=== PATIENT | male | born 1980 | race Caucasian/White ===

== ENCOUNTER 2017-09-10 21:08 | Emergency (ER) | payer OTHER ==
[~2017-09-10] VITALS: Ht 180.3 cm; Wt 86.0 kg
[2017-09-10 21:22] VITALS: Ht 180.3 cm; Wt 86.0 kg
--- NOTE | 2017-09-10 21:54 | ERD ---
ER Documentation Chief Complaint Chief Complaint patient ritika reveles from [place] for pulling gun, in custody, here for (ANTHONY HUNETR MD) HPI This is a 37-year-old male with a possible history of bipolar disorder who reportedly went into a [employer] store with a realistic looking toy gun and threatened to shoot everyone in it. According to police, he was reportedly upset about a [employer] Bill. The police were called immediately and attempted to arrest him. In order to detain him, they had to take him to the ground and the knee was placed in his upper back to secure him to the ground for the safety of the officers and surrounding bystanders. The patient was handcuffed him with the intent is to arrest him. However, after the patient was handcuffed, he started to complain about back pain, requesting his security dispatcher and claiming assault. At one point he was screaming that he had a history of Bipolar disorder as well. The rest of the history is limited secondary to patient's significant agitation and aggression. The patient would not answer questions. (ANTHONY HUNTER MD) ROS Limited secondary to patient's agitation. (ANTHONY HUNTER MD) Medications Home Meds Active Scripts Naproxen* (Naproxen*) 500 Mg Tablet, 500 MG PO BID Y for PAIN, #20 TAB Prov:LESTER BLANDON DO 09/11/17 Allergies Allergies: Coded Allergies: Unable to Assess (Verified Allergy, Unknown, 09/10/17) PMhx/Soc Limited secondary to patient's agitation and noncompliance with history taking Hx Psychiatric Problems: Yes (?Bipolar disorder) Hx Alcohol Use: Yes Hx Substance Use: Yes Hx Tobacco Use: Yes Smoking Status: Current every day smoker (ANTHONY HUNTER MD) FmHx Unable to obtain secondary to patient noncompliance and agitation. (ANTHONY HUNTER MD) Physical Exam Vitals Vital Signs Date Time Temp Pulse Resp B/P Pulse Ox O2 Delivery O2 Flow Rate FiO2 09/11/17 01:14 98.5 70 19 126/81 100 09/10/17 21:45 98.5 98 18 126/81 100 Room Air 09/10/17 21:22 98.5 112 18 126/81 100 (LESTER BLANDON DO) Physical Exam Const: Significant emotional distress, well-developed, well-nourished Head: Normocephalic, Atraumatic Eyes: Normal Conjunctiva. Pupils equal, round and reactive to light ENT: Normal External Ears, Nose and Mouth. Neck: No midline step-offs or deformities Resp: Clear to auscultation bilaterally, No wheezes, rales or rhonchi Cardio: Regular rate and rhythm. No murmurs, rubs or gallops Abd: Soft, non tender, non distended. Normal bowel sounds Skin: No petechiae or rashes Back: No midline step-offs or deformities to the thoracic or lumbar spine Ext: No cyanosis, or edema Neur: No facial droop. Moves all extremities spontaneously. No obvious focal deficits. Psych: Significant agitation. (ANTHONY HUNTER MD) Result Diagram: 09/10/17235409/10/175 Results 24 hrs Laboratory Tests Test 09/10/17 00:00 09/10/17 23:55 Urine Color YELLOW Urine Clarity CLEAR Urine pH 5.0 Urine Specific [place] 1.009 Urine Ketones NEGATIVEmg/dL Urine Nitrite NEGATIVEmg/dL Urine Bilirubin NEGATIVEmg/dL Urine Urobilinogen NEGATIVEmg/dL Urine Leukocyte Esterase NEGATIVELeu/ul Urine Hemoglobin NEGATIVEmg/dL Urine Glucose NEGATIVEmg/dL Urine Total Protein NEGATIVEmg/dl Urine Opiates Screen Negative Urine Barbiturates Negative Urine Amphetamines Screen Negative Urine Benzodiazepines Screen Negative Urine Cocaine Screen Negative Urine Cannabinoids Negative White Blood Count 15.010^3/ul Red Blood Count 5.0210^6/ul Hemoglobin 15.5g/dl Hematocrit 45.6% Mean Corpuscular Volume 90.8fl Mean Corpuscular Hemoglobin 30.9pg Mean Corpuscular Hemoglobin Concent 34.0g/dl Red Cell Distribution Width 11.7% Platelet Count 31260^3/UL Mean Platelet Volume 11.0fl Neutrophils % 77.7% Lymphocytes % 10.7% Monocytes % 9.1% Eosinophils % 1.6% Basophils % 0.6% Nucleated Red Blood Cells % 0.0/100WBC Neutrophils # 11.610^3/ul Lymphocytes # 1.610^3/ul Monocytes # 1.410^3/ul Eosinophils # 0.210^3/ul Basophils # 0.110^3/ul Nucleated Red Blood Cells # 0.010^3/ul Sodium Level 143mmol/L Potassium Level 3.2mmol/L Chloride Level 104mmol/L Carbon Dioxide Level 25mmol/L Anion Gap 17 Blood Urea Nitrogen 12mg/dl Creatinine 1.02mg/dl Glucose Level 84mg/dl Calcium Level 9.3mg/dl Total Bilirubin 0.7mg/dl Direct Bilirubin 0.00mg/dl Indirect Bilirubin 0.7mg/dl Aspartate Amino Transf (AST/SGOT) 42IU/L Alanine Aminotransferase (ALT/SGPT) 37IU/L Alkaline Phosphatase 66IU/L Total Protein 7.4g/dl Albumin 4.5g/dl Globulin 2.90g/dl Albumin/Globulin Ratio 1.55 Salicylates Level < 1.0mg/dl Acetaminophen Level < 10.0ug/ml Ethyl Alcohol Level < 10.0mg/dl Current Medications Medications (Trade) Dose Ordered Sig/Viri Route PRN Reason Start Time Stop Time Status Last Admin Dose Admin Diphenhydramine HCl (Benadryl) 50 mg ONCE ONCE IV 09/10/17 23:30 09/10/17 23:32 DC 09/10/17 23:35 Lorazepam (Ativan) 2 mg ONCE ONCE IV 09/10/17 23:30 09/10/17 23:32 DC 09/10/17 23:35 Haloperidol (Haldol) 5 mg ONCE ONCE IV 09/10/17 23:30 09/10/17 23:32 DC 09/10/17 23:35 (LESTER BLANDON DO) Procedures/MDM MDM The patient's presentation warrants further investigation. The patient is presenting with significant aggression and agitation. Upon arrival, he threatened staff and could not be calmed down he would not allow us to safely treat him and the decision was made to give him medications for sedation. We will complete a workup to evaluate for etiologies of his aggression. When the patient awakes and is calm, he will require reevaluation to determine his psychologic status. The patient did not allow me to examine his back prior to sedation. There are no signs of external injury. There were no step-offs or deformities to the spine. LABS The patient's blood work was obtained and reviewed. The patient's CBC shows leukocytosis and left shift. However, I believe this to be reactive. The patient is afebrile and does not appear systemically ill. I do not suspect a systemic infection. The patient is not anemic today. The patient's platelet count is unremarkable. The patient's CMP shows no signs of metabolic or electrolyte emergencies. The patient has unremarkable renal and hepatic function testing. The patient's UDS, salicylate level, Tylenol level and alcohol level are all negative. The patient's urinalysis shows no signs of hematuria or infection. TREATMENT/DISPOSITION The patient was given Haldol, Ativan and Benadryl IM to chemically restrain the patient for the safety of himself as well as the healthcare staff. At this time, the patient is pending returned to baseline from sedation. The patient will require reevaluation once he does return to baseline. The patient' s blood work and toxicology studies are reassuring. I have low suspicion for a back injury, but this may also be reevaluated when he wakes. If the patient is medically cleared, the police intend to arrest him. The patient was signed out to Dr. Blandon at 12 AM on September 11, 2017 pending return to baseline. The patient's blood pressure was elevated at greater than 120/80 while in the emergency department. The patient was otherwise stable with no evidence of hypertensive urgency or emergency or end organ damage. The patient does not require admission for blood pressure control. I have discussed with the patient the risks of hypertension. I have advised the patient to follow up with the primary care physician for outpatient monitoring and treatment for hypertension in 2-3 days. I have instructed the patient to return to the ER for any new or worsening symptoms including chest pain, shortness of breath, headache, blurred vision, confusion, nausea, vomiting or LOC. Disclaimer: Inadvertent spelling and grammatical errors are likely due to EHR/ dictation software use and do not reflect on the overall quality of patient care. Note that the electronic time recorded on this note does not necessarily reflect the actual time of the patient encounter. (ANTHONY HUNTER MD) She was signed out to me. I monitored him during my shift. Laboratories returned with nonspecific leukocytosis patient has no signs or symptoms of infection. It also showed before that he was bipolar and therefore he was brought to the hospital and he also complained of back pain. He no longer has any back pain. He denies any suicidal homicidal ideations. He has no acute psychosis. He is calm. He is stable for discharge and please custody. I am going to give him a prescription of her naproxen for his back pain. (LESTER BLANDON DO) Departure Diagnosis: Primary Impression: Agitation Additional Impressions: Back pain Back pain location: thoracic back pain Chronicity: acute Back pain laterality: unspecified Qualified Code: M54.6 - Acute thoracic back pain, unspecified back pain laterality Leukocytosis, unspecified Condition: Stable ANTHONY HUNTER MD Sep 10, 2017 21:54 LESTER BLANDON DO Sep 11, 2017 03:10 Monocytes # 1.410^3/ul Eosinophils # 0.210^3/ul Basophils # 0.110^3/ul Nucleated Red Blood Cells # 0.010^3/ul Sodium Level 143mmol/L Potassium Level 3.2mmol/L Chloride Level 104mmol/L Carbon Dioxide Level 25mmol/L Anion Gap 17 Blood Urea Nitrogen 12mg/dl Creatinine 1.02mg/dl Glucose Level 84mg/dl Calcium Level 9.3mg/dl Total Bilirubin 0.7mg/dl Direct Bilirubin 0.00mg/dl Indirect Bilirubin 0.7mg/dl Aspartate Amino Transf (AST/SGOT) 42IU/L Alanine Aminotransferase (ALT/SGPT) 37IU/L Alkaline Phosphatase 66IU/L Total Protein 7.4g/dl Albumin 4.5g/dl Globulin 2.90g/dl Albumin/Globulin Ratio 1.55 Salicylates Level < 1.0mg/dl Acetaminophen Level < 10.0ug/ml Ethyl Alcohol Level < 10.0mg/dl Current Medications Medications (Trade) Dose Ordered Sig/Viri Route PRN Reason Start Time Stop Time Status Last Admin Dose Admin Diphenhydramine HCl (Benadryl) 50 mg ONCE ONCE IV 09/10/17 23:30 09/10/17 23:32 DC 09/10/17 23:35 Lorazepam (Ativan) 2 mg ONCE ONCE IV 09/10/17 23:30 09/10/17 23:32 DC 09/10/17 23:35 Haloperidol (Haldol) 5 mg ONCE ONCE IV 09/10/17 23:30 09/10/17 23:32 DC 09/10/17 23:35 (ANTHONY HUNTER MD) Procedures/MDM MDM The patient's presentation warrants further investigation. The patient is presenting with significant aggression and agitation. Upon arrival, he threatened staff and could not be calmed down he would not allow us to safely treat him and the decision was made to give him medications for sedation. We will complete a workup to evaluate for etiologies of his aggression. When the patient awakes and is calm, he will require reevaluation to determine his psychologic status. The patient did not allow me to examine his back prior to sedation. There are no signs of external injury. There were no step-offs or deformities to the spine. LABS The patient's blood work was obtained and reviewed. The patient's CBC shows leukocytosis and left shift. However, I believe this to be reactive. The patient is afebrile and does not appear systemically ill. I do not suspect a systemic infection. The patient is not anemic today. The patient's platelet count is unremarkable. The patient's CMP shows no signs of metabolic or electrolyte emergencies. The patient has unremarkable renal and hepatic function testing. The patient's UDS, salicylate level, Tylenol level and alcohol level are all negative. The patient's urinalysis shows no signs of hematuria or infection. TREATMENT/DISPOSITION The patient was given Haldol, Ativan and Benadryl IM to chemically restrain the patient for the safety of himself as well as the healthcare staff. At this time, the patient is pending returned to baseline from sedation. The patient will require reevaluation once he does return to baseline. The patient' s blood work and toxicology studies are reassuring. I have low suspicion for a back injury, but this may also be reevaluated when he wakes. If the patient is medically cleared, the police intend to arrest him. The patient was signed out to Dr. Blandon at 12 AM on September 11, 2017 pending return to baseline. The patient's blood pressure was elevated at greater than 120/80 while in the emergency department. The patient was otherwise stable with no evidence of hypertensive urgency or emergency or end organ damage. The patient does not require admission for blood pressure control. I have discussed with the patient the risks of hypertension. I have advised the patient to follow up with the primary care physician for outpatient monitoring and treatment for hypertension in 2-3 days. I have instructed the patient to return to the ER for any new or worsening symptoms including chest pain, shortness of breath, headache, blurred vision, confusion, nausea, vomiting or LOC. Disclaimer: Inadvertent spelling and grammatical errors are likely due to EHR/ dictation software use and do not reflect on the overall quality of patient care. Note that the electronic time recorded on this note does not necessarily reflect the actual time of the patient encounter. (ANTHONY HUNTER MD) She was signed out to me. I monitored him during my shift. Laboratories returned with nonspecific leukocytosis patient has no signs or symptoms of infection. It also showed before that he was bipolar and therefore he was brought to the hospital and he also complained of back pain. He no longer has any back pain. He denies any suicidal homicidal ideations. He has no acute psychosis. He is calm. He is stable for discharge and please custody. I am going to give him a prescription of her naproxen for his back pain. (LESTER BLANDON DO) Departure Diagnosis: Primary Impression: Agitation Additional Impression: Back pain Back pain location: thoracic back pain Chronicity: acute Back pain laterality: unspecified Qualified Code: M54.6 - Acute thoracic back pain, unspecified back pain laterality Condition: Stable ANTHONY HUNTER MD Sep 10, 2017 21:54 LESTER BLANDON DO Sep 11, 2017 03:10
[2017-09-10] MEDS ORDERED: LORAZEPAM 2 MG INJ IV ONE (23:30)
[2017-09-10] MEDS ORDERED: DIPHENHYDRAMINE 50 MG INJ IV ONE (23:30)
[2017-09-10] MEDS ORDERED: HALOPERIDOL 5 MG INJ IV ONE (23:30)
[2017-09-11 00:11] LABS: BASOPHIL # 0.1 10^3/ul (0.0-0.1); BASOPHILS % 0.6 % (0.0-2.0); EOSINOPHILS # 0.2 10^3/ul (0.0-0.5); EOSINOPHILS % 1.6 % (0.0-7.0); HEMATOCRIT 45.6 % (42.0-52.0); HEMOGLOBIN 15.5 g/dl (14.0-18.0); LYMPHOCYTES # 1.6 10^3/ul (0.8-2.9); LYMPHOCYTES % 10.7 % (15.0-51.0); MEAN CORPUSCULAR HEMOGLOBIN 30.9 pg (29.0-33.0); MEAN CORPUSCULAR VOLUME 90.8 fl (82.0-101.0); MONOCYTE # 1.4 10^3/ul (0.3-0.9); MONOCYTES % 9.1 % (0.0-11.0); NEUTROPHIL # 11.6 10^3/ul (1.6-7.5); NEUTROPHILS % 77.7 % (39.0-77.0); PLATELET COUNT 215 10^3/UL (140-415); RED BLOOD COUNT 5.02 10^6/ul (4.70-6.10); RED CELL DISTRIBUTION WIDTH 11.7 % (11.5-14.5)
[2017-09-11 00:33] LABS: ALANINE AMINOTRANSFERASE 37 IU/L (13-69); ALBUMIN 4.5 g/dl (3.3-4.9); ALBUMIN/GLOBULIN RATIO 1.55; ALKALINE PHOSPHATASE 66 IU/L (42-121); ANION GAP 17 (8-16); ASPARTATE AMINO TRANSFERASE 42 IU/L (15-46); BILIRUBIN,INDIRECT 0.7 mg/dl (0-1.1); BILIRUBIN,TOTAL 0.7 mg/dl (0.2-1.3); BLOOD UREA NITROGEN 12 mg/dl (7-20); CALCIUM 9.3 mg/dl (8.4-10.2); CARBON DIOXIDE 25 mmol/L (21-31); CHLORIDE 104 mmol/L (97-110); CREATININE 1.02 mg/dl (0.61-1.24); GLUCOSE 84 mg/dl (70-220); POTASSIUM 3.2 mmol/L (3.5-5.1); SODIUM 143 mmol/L (135-144); TOTAL PROTEIN 7.4 g/dl (6.1-8.1)
[2017-09-11 00:34] LABS: ACETAMINOPHEN < 10.0 ug/ml (10.0-30.0)
[2017-09-11 00:35] LABS: ETHANOL < 10.0 mg/dl; SALICYLATE < 1.0 mg/dl (5.0-30.0)
[2017-09-11 01:14] VITALS: BP 126/81; PULSE 70; RESP 19; TEMP 98.5
[2017-09-11 01:26] LABS: ADD UMIC NO; UR ASCORBIC ACID NEGATIVE (NEGATIVE); UR BILIRUBIN (Dip) NEGATIVE (NEGATIVE); UR BLOOD (Dip) NEGATIVE (NEGATIVE); UR CLARITY CLEAR (CLEAR); UR COLOR YELLOW (YELLOW); UR GLUCOSE (Dip) NEGATIVE (NEGATIVE); UR KETONES (Dip) NEGATIVE (NEGATIVE); UR LEUKOCYTE ESTERASE (Dip) NEGATIVE Leu/ul (NEGATIVE); UR NITRITE (Dip) NEGATIVE (NEGATIVE); UR SPECIFIC GRAVITY (Dip) 1.009 (1.003-1.030); UR TOTAL PROTEIN (Dip) NEGATIVE (NEGATIVE); UR UROBILINOGEN (Dip) NEGATIVE (NEGATIVE)
[2017-09-11 01:38] LABS: BARBITURATES Negative (NEGATIVE); BENZODIAZEPINES Negative (NEGATIVE); CANNABINOIDS Negative (NEGATIVE); COCAINE Negative (NEGATIVE)
[2017-09-11 01:55] LABS: OPIATES Negative (NEGATIVE)
[2017-09-11] MEDS ORDERED: NAPR-688 PO (03:07)
== END 2017-09-11 03:16 | disposition home or self-care (01) ==
LOC: E/R 21:08
DX: R45.1 Restlessness and agitation (principal); M54.6 Pain in thoracic spine; D72.829 Elevated white blood cell count, unspecified; F17.210 Nicotine dependence, cigarettes, uncomplicated
CPT/HCPCS: 36415; 80053; 80306; 80307; 81003; 85025; 96374; 96375